=== PATIENT | male | born 1965 | race Hispanic/Latino ===

== ENCOUNTER 2020-09-18 06:30 | Observation (INO) | payer OTHER ==
[2020-09-13 08:43] LABS: BASOPHILS # (AUTO) 0.1 (0.0-0.1); BASOPHILS % 0.9 % (0.0-1.0); EOSINOPHILS # (AUTO) 0.1 (0.0-0.4); EOSINOPHILS % 2.4 % (0.0-6.0); HEMATOCRIT 42.8 % (38.2-49.6); HEMOGLOBIN 14.3 g/dL (14.0-18.0); LYMPHOCYTES # (AUTO) 2.4 (1.0-3.2); MEAN CORPUSCULAR HEMOGLOBIN 29.1 pg (28-32); MEAN CORPUSCULAR HGB CONC 33.4 g/dL (31-35); MONOCYTES # (AUTO) 0.5 (0.2-0.8); MONOCYTES % 9.5 % (4.4-11.3); NEUTROPHILS # (AUTO) 2.4 (2.1-6.9); PLATELET COUNT 241 x10e3/uL (140-360); RED BLOOD COUNT 4.92 x10e6/uL (4.3-5.7); RED CELL DISTRIBUTION WIDTH 12.9 % (11.7-14.4)
[2020-09-13 09:08] LABS: ALANINE AMINOTRANSFERASE 23 IU/L (0-55); ALBUMIN 3.6 g/dL (3.5-5.0); ALKALINE PHOSPHATASE 63 IU/L (40-150); BLOOD UREA NITROGEN 13 mg/dL (7-26); BUN/CREATININE RATIO 16 (6-25); CALCIUM 8.6 mg/dL (8.4-10.2); CARBON DIOXIDE 23 mmol/L (22-29); CHLORIDE 107 mmol/L (98-107); EST GLOMERULAR FILTRATION RATE > 60 ML/MIN (60-); GLUCOSE 108 mg/dL (74-118); SODIUM 139 mmol/L (136-145)
[~2020-09-18] VITALS: Ht 180.3 cm; Wt 108.9 kg
[~2020-09-18 06:30] MED LIST: AUGMENTIN 875-1 EACH PO; BENZONATATE100 MG PO; HUMIRA IJ; KEFLEX500 MG PO; KENALOG63 GM; LEFLUNOMIDE10 MG PO; NAPROSYN250 MG; NAPROXEN500 MG PO; NORCO 7.5-3251 EACH PO; SIMPONI50 MG/0.1 INJ; SURFAK240 MG PO; Z.0.METOPROLOL TART2 PO; [UNRECOGNIZED DRUG - OTHER]
[2020-09-18] MEDS ORDERED: LIDOCAINE 1% W/EPINEPHRINE 20 ML VIAL ONE (09:03)
[2020-09-18] MEDS ORDERED: BUPIVACAINE HCL 0.5% INJ 30 ML VIAL INJ ONE (09:03)
[2020-09-18] MEDS ORDERED: FENTANYL CITRATE/PF 100MCG/2 ML INJ ONE (12:07)
[2020-09-18] MEDS ORDERED: MIDAZOLAM HCL 2 MG/2 ML VIAL ONE (12:07)
[2020-09-18] MEDS ORDERED: DEXAMETHASONE SOD PHOS INJ 4 MG/ML VIAL ONE (12:32)
[2020-09-18] MEDS ORDERED: NEOSTIGMINE 1 MG/ML 10ML VIAL ONE (12:32)
[2020-09-18] MEDS ORDERED: SEVOFLURANE INHAL SOLN 250 ML PEN BTL ONE (12:32)
[2020-09-18] MEDS ORDERED: LIDOCAINE HCL 2% LOCAL INJ 5 ML SDV VIAL INJ ONE (12:32)
[2020-09-18] MEDS ORDERED: ONDANSETRON HCL INJ 2MG/ML 2ML 2 MG/ML VIAL ONE (12:32)
[2020-09-18] MEDS ORDERED: PROPOFOL IV EMULSION 10 MG/ML 20 ML VIAL ONE (12:32)
[2020-09-18] MEDS ORDERED: KETOROLAC TROMETHAMINE 30 MG/ML VIAL ONE (12:32)
[2020-09-18] MEDS ORDERED: CEFAZOLIN SOD 1 GM VIAL ONE (12:32)
[2020-09-18] MEDS ORDERED: GLYCOPYRROLATE INJ 0.2 MG/ML VIAL ONE (12:32)
[2020-09-18] MEDS: CEFAZOLIN SOD 1 GM/NS 50ML 50 ML IV SCH ×2 (13:33→21:41)
[2020-09-18] MEDS: SODIUM CHLORIDE 0.9% 1000ML 1,000 ML IV SCH ×2 (13:33→23:30)
[2020-09-18] MEDS: PANTOPRAZOLE 40 MG 10ML VIAL IV SCH (13:33)
[2020-09-18 14:30] VITALS: BP 124/82
[2020-09-18 14:45] LABS: BASOPHILS % 0.3 % (0.0-1.0); HEMATOCRIT 43.2 % (38.2-49.6); HEMOGLOBIN 14.4 g/dL (14.0-18.0); LYMPHOCYTES # (AUTO) 1.3 (1.0-3.2); LYMPHOCYTES % 10.6 % (18.0-39.1); MEAN CORPUSCULAR HEMOGLOBIN 29.2 pg (28-32); MEAN CORPUSCULAR HGB CONC 33.3 g/dL (31-35); MEAN CORPUSCULAR VOLUME 87.6 fL (81-99); MONOCYTES # (AUTO) 0.3 (0.2-0.8); MONOCYTES % 2.2 % (4.4-11.3); NEUTROPHILS # (AUTO) 10.4 (2.1-6.9); NEUTROPHILS % 86.5 % (38.7-80.0); PLATELET COUNT 259 x10e3/uL (140-360); RED BLOOD COUNT 4.93 x10e6/uL (4.3-5.7)
[2020-09-18 15:02] LABS: BLOOD UREA NITROGEN 14 mg/dL (7-26); BUN/CREATININE RATIO 16 (6-25); CALCIUM 8.7 mg/dL (8.4-10.2); CARBON DIOXIDE 23 mmol/L (22-29); CHLORIDE 106 mmol/L (98-107); CREATININE, SERUM 0.87 mg/dL (0.72-1.25); EST GLOMERULAR FILTRATION RATE > 60 ML/MIN (60-); GLUCOSE 122 mg/dL (74-118); SODIUM 137 mmol/L (136-145)
[2020-09-18 15:35] VITALS: BP 129/74
[2020-09-18] MEDS: ONDANSETRON HCL INJ 2MG/ML 2ML 2 MG/ML VIAL IV PRN (16:02)
[2020-09-18] MEDS: HYDROMORPHONE 1MG/1ML INJ IV PRN (18:31)
[2020-09-18 20:00] VITALS: BP 121/80
[2020-09-18] MEDS: HYDROCODONE/APAP 7.5MG-325MG 1 EA TAB PO PRN (21:47)
[2020-09-18 22:06] VITALS: BP 121/80
[2020-09-19] VITALS (9 sets, daily range): BP systolic 103–128; BP diastolic 61–78
[2020-09-19] MEDS: HYDROCODONE/APAP 7.5MG-325MG 1 EA TAB PO PRN ×3 (03:24→23:27)
[2020-09-19 05:01] LABS: BASOPHILS % 0.2 % (0.0-1.0); EOSINOPHILS % 0.1 % (0.0-6.0); HEMATOCRIT 40.9 % (38.2-49.6); HEMOGLOBIN 13.7 g/dL (14.0-18.0); LYMPHOCYTES # (AUTO) 2.6 (1.0-3.2); LYMPHOCYTES % 24.9 % (18.0-39.1); MEAN CORPUSCULAR HEMOGLOBIN 29.6 pg (28-32); MEAN CORPUSCULAR HGB CONC 33.5 g/dL (31-35); MEAN CORPUSCULAR VOLUME 88.3 fL (81-99); MONOCYTES # (AUTO) 1.1 (0.2-0.8); MONOCYTES % 10.9 % (4.4-11.3); NEUTROPHILS # (AUTO) 6.5 (2.1-6.9); NEUTROPHILS % 63.7 % (38.7-80.0); PLATELET COUNT 243 x10e3/uL (140-360); RED BLOOD COUNT 4.63 x10e6/uL (4.3-5.7); RED CELL DISTRIBUTION WIDTH 12.8 % (11.7-14.4)
[2020-09-19 05:21] LABS: ANION GAP 15.8 mmol/L (8-16); BLOOD UREA NITROGEN 12 mg/dL (7-26); BUN/CREATININE RATIO 14 (6-25); CALCIUM 8.3 mg/dL (8.4-10.2); CARBON DIOXIDE 22 mmol/L (22-29); CHLORIDE 104 mmol/L (98-107); CREATININE, SERUM 0.87 mg/dL (0.72-1.25); EST GLOMERULAR FILTRATION RATE > 60 ML/MIN (60-); GLUCOSE 116 mg/dL (74-118); POTASSIUM 3.8 mmol/L (3.5-5.1); SODIUM 138 mmol/L (136-145)
[2020-09-19] MEDS: SODIUM CHLORIDE 0.9% 1000ML 1,000 ML IV SCH ×3 (09:17→18:14)
[2020-09-19] MEDS: ONDANSETRON HCL INJ 2MG/ML 2ML 2 MG/ML VIAL IV PRN (09:17)
[2020-09-19] MEDS: HYDROMORPHONE 1MG/1ML INJ IV PRN ×3 (09:17→18:14)
[2020-09-19] MEDS: PANTOPRAZOLE 40 MG 10ML VIAL IV SCH (11:27)
[2020-09-20] VITALS (7 sets, daily range): BP systolic 125–142; BP diastolic 70–88
[2020-09-20] MEDS: HYDROCODONE/APAP 7.5MG-325MG 1 EA TAB PO PRN ×4 (04:43→17:17)
[2020-09-20] MEDS: ONDANSETRON HCL INJ 2MG/ML 2ML 2 MG/ML VIAL IV PRN (04:43)
[2020-09-20] MEDS: PANTOPRAZOLE 40 MG 10ML VIAL IV SCH (14:13)
[2020-09-20] MEDS: SODIUM CHLORIDE 0.9% 1000ML 1,000 ML IV SCH (14:13)
[2020-09-20] MEDS ORDERED: KEFLEX500 MG (18:46)
[2020-09-20] MEDS ORDERED: NORCO 7.5-3251 EACH PO (18:47)
== END 2020-09-20 20:00 | disposition home or self-care (01) ==
LOC: OR 06:30 → PACU V 11:14 → MED/SURG 13:08
PROVIDERS: ADMIT Surgery; ATTEND Surgery
DX: Z01.810 Encounter for preprocedural cardiovascular examination (principal); Z01.812 Encounter for preprocedural laboratory examination; Z20.828 Contact with and (suspected) exposure to other viral communicable diseases; G47.33 Obstructive sleep apnea (adult) (pediatric)
CPT/HCPCS: 36415 ×3; 49560; 49568; 80048 ×2; 80053; 85025 ×3; 93005; C1781; C9113 ×2; G0378 ×3; J0690 ×2; J1100; J1170 ×2; J1885; J2001; J2250; J2405 ×3; J2704; J2710; J3010; J7030 ×2; U0002

== ENCOUNTER → 2025-08-19 | Outpatient (REF) | payer OTHER ==
[~2025-08-19] MED LIST changes: +KEFLEX500 MG; +LIDOCAINE HCL 2% LOCAL INJ 5 ML SDV VIAL INJ ONE; +MULTIVITAMIN PO; +PROPOFOL IV EMULSION 50 ML IV ONE
== END ==
LOC: CT 15:41
PROVIDERS: ATTEND Surgery
DX: R10.9 Unspecified abdominal pain (principal); N32.89 Other specified disorders of bladder
CPT/HCPCS: 74177; J2003; J2704